=== PATIENT | male | born 1985 | race Two or more races ===

== ENCOUNTER 2020-10-03 14:47 | Emergency (ER) | payer OTHER ==
[~2020-10-03] VITALS: Ht 167.6 cm; Wt 54.4 kg
[2020-10-03] MEDS ORDERED: IOHEXOL 300 MG/ML 100ML BOTTLE IJ ONE (15:27)
[2020-10-03 17:48] VITALS: BP 128/72
== END 2020-10-03 17:51 | disposition home or self-care (01) ==
LOC: ER 14:47
DX: S30.811A Abrasion of abdominal wall, initial encounter (principal); S20.419A Abrasion of unspecified back wall of thorax, initial encounter; S80.812A Abrasion, left lower leg, initial encounter; S80.811A Abrasion, right lower leg, initial encounter; M79.10 Myalgia, unspecified site; M54.2 Cervicalgia; V43.52XA Car driver injured in collision with other type car in traffic accident, initial encounter; Y93.89 Activity, other specified; Y92.410 Unspecified street and highway as the place of occurrence of the external cause; Y99.8 Other external cause status
CPT/HCPCS: 70450; 71260; 72125; 73110; 73562; 74177; 99285; Q9967